=== PATIENT | female | born 1950 | race Caucasian/White ===

== ENCOUNTER 2018-03-02 20:52 | Emergency (ER) | payer OTHER ==
[~2018-03-02] VITALS: Ht 160 cm; Wt 69.4 kg
[~2018-03-02 20:52] MED LIST: ARAVA10 MG PO; COUMADIN6 MG PO; FOLIC ACID1 MG PO; LIDODERM 5%1 PATC1 TRANSDERM; MACRODANTIN50 MG PO; METHOTREXA1 GM/40 M1; PERCOCET 5-3251 EACH PO; SYNTHROID 0.0.088 M1 PO; SYNTHROID75 MCG; TRAMADOL 50 MG50 MG PO; ULTRAM 50MG TAB50 MG PO; ZOFRAN ODT4 MG PO
[2018-03-02] MEDS ORDERED: MACRODANTIN50 M1 PO (21:06)
[2018-03-02 22:45] VITALS: BP 180/104
== END 2018-03-02 22:49 | disposition home or self-care (01) ==
LOC: M.ERS 20:52
DX: M25.531 Pain in right wrist (principal); M25.532 Pain in left wrist; M25.562 Pain in left knee; E03.9 Hypothyroidism, unspecified; Z90.49 Acquired absence of other specified parts of digestive tract; M19.90 Unspecified osteoarthritis, unspecified site; G43.909 Migraine, unspecified, not intractable, without status migrainosus; Z88.1 Allergy status to other antibiotic agents; Z88.5 Allergy status to narcotic agent; Z88.8 Allergy status to other drugs, medicaments and biological substances; W01.0XXA Fall on same level from slipping, tripping and stumbling without subsequent striking against object, initial encounter; Y93.89 Activity, other specified; Y92.89 Other specified places as the place of occurrence of the external cause; Y99.8 Other external cause status

== ENCOUNTER 2019-04-06 21:28 | Emergency (ER) | payer OTHER ==
[~2019-04-06] VITALS: Ht 160 cm; Wt 64.4 kg
[~2019-04-06 21:28] MED LIST changes: +MACRODANTIN50 M1 PO
[2019-04-06 23:53] VITALS: BP 197/110
== END 2019-04-07 00:41 | disposition home or self-care (01) ==
LOC: M.ERS 21:28
DX: S62.025A Nondisplaced fracture of middle third of navicular [scaphoid] bone of left wrist, initial encounter for closed fracture (principal); M19.90 Unspecified osteoarthritis, unspecified site; E03.9 Hypothyroidism, unspecified; G43.909 Migraine, unspecified, not intractable, without status migrainosus; M32.9 Systemic lupus erythematosus, unspecified; F32.9 Major depressive disorder, single episode, unspecified; Z88.1 Allergy status to other antibiotic agents; Z88.4 Allergy status to anesthetic agent; Z90.49 Acquired absence of other specified parts of digestive tract; Z86.718 Personal history of other venous thrombosis and embolism; Z88.2 Allergy status to sulfonamides; Z88.5 Allergy status to narcotic agent; Z88.8 Allergy status to other drugs, medicaments and biological substances; W18.39XA Other fall on same level, initial encounter; Y92.89 Other specified places as the place of occurrence of the external cause; Y93.89 Activity, other specified; Y99.8 Other external cause status

== ENCOUNTER 2019-12-24 08:26 | Emergency (ER) | payer MEDICARE ==
[~2019-12-24] VITALS: Ht 165.1 cm; Wt 62.6 kg
[2019-12-24] MEDS ORDERED: NORCO 5-325 TA1 EAC1 PO (08:46)
[2019-12-24] MEDS ORDERED: ZOFRAN ODT4 MG SUBLING (08:46)
[2019-12-24 09:34] LABS: HEMATOCRIT 30.5 % (37.0-47.0); HEMOGLOBIN 10.5 gm/dL (12.0-15.0); MCH 31.8 pg (26.0-34.0); MCHC 34.3 g/dL (28.0-37.0); MCV 92.5 fL (80.0-100.0); MPV 8.1 fl. (7.2-11.1); NUCLEATED RBCS 0 /100WBC; PLATELET COUNT* 151 thou/uL (150-400); RDW-CV 16.3 % (10.5-14.5); WBC 2.3 thou/uL (4.0-11.0)
[2019-12-24 09:44] LABS: APTT 40.4 Seconds (25.0-31.3); INR 3.3; PROTIME 32.4 Seconds (9.20-11.50)
[2019-12-24 09:52] LABS: CALCIUM 8.4 mg/dL (8.5-10.1); CREATININE 0.7 mg/dL (0.6-1.3); POTASSIUM 3.6 mmol/L (3.5-5.1)
[2019-12-24 10:03] VITALS: BP 172/107
[2019-12-24 10:31] LABS: ABSOLUTE LYMPHOCYTES 0.4 thou/uL (0.8-5.3); ABSOLUTE MONOCYTES 0.7 thou/uL (0.0-1.2); ABSOLUTE NEUTROPHILS 1.2 thou/uL (1.6-8.1); ANISOCYTOSIS 1+; PLATELET ESTIMATE ADEQUATE
== END 2019-12-24 10:04 | disposition home or self-care (01) ==
LOC: M.ERS 08:26
PROVIDERS: Family Medicine
DX: S00.83XA Contusion of other part of head, initial encounter (principal); E03.9 Hypothyroidism, unspecified; G43.909 Migraine, unspecified, not intractable, without status migrainosus; M19.90 Unspecified osteoarthritis, unspecified site; F32.9 Major depressive disorder, single episode, unspecified; Z90.49 Acquired absence of other specified parts of digestive tract; Z88.1 Allergy status to other antibiotic agents; Z88.2 Allergy status to sulfonamides; Z88.6 Allergy status to analgesic agent; W22.03XA Walked into furniture, initial encounter; Y93.89 Activity, other specified; Y92.89 Other specified places as the place of occurrence of the external cause; Y99.8 Other external cause status

== ENCOUNTER 2020-08-04 14:52 | Emergency (ER) | payer MEDICARE ==
[~2020-08-04] VITALS: Ht 160 cm; Wt 64.9 kg
[~2020-08-04 14:52] MED LIST changes: +NORCO 5-325 TA1 EAC1 PO; +ZOFRAN ODT4 MG SUBLING
[2020-08-04] MEDS ORDERED: STOOL SOFTENER100 MG PO (15:06)
[2020-08-04] MEDS ORDERED: MACROBID 100 M100 MG PO ×2 (15:07)
[2020-08-04 15:40] LABS: INFLUENZA A ANTIGEN Negative (Negative); INFLUENZA B ANTIGEN Negative (Negative)
[2020-08-04] MEDS ORDERED: ZPAK PO (15:48)
[2020-08-04] MEDS ORDERED: PREDNISONE 20 M20 MG PO (15:48)
[2020-08-04] MEDS ORDERED: VENTOLIN HFA 1818 GM INH (15:48)
[2020-08-04 16:53] LABS: HEMATOCRIT 30.1 % (37.0-47.0); HEMOGLOBIN 10.1 gm/dL (12.0-15.0); MCHC 33.6 g/dL (28.0-37.0); MCV 95.2 fL (80.0-100.0); MPV 8.5 fl. (7.2-11.1); NUCLEATED RBCS 0 /100WBC; PLATELET COUNT* 125 thou/uL (150-400); RBC 3.16 mil/uL (4.20-5.00); RDW-CV 16.1 % (10.5-14.5); WBC 2.4 thou/uL (4.0-11.0)
[2020-08-04 17:04] LABS: POTASSIUM 3.6 mmol/L (3.5-5.1)
[2020-08-04 17:15] LABS: ALBUMIN 3.2 g/dL (3.4-5.0); TOTAL BILIRUBIN 0.6 mg/dL (<0.1-1.0); TOTAL PROTEIN 7.3 g/dL (6.4-8.2)
[2020-08-04 17:39] VITALS: BP 172/70
[2020-08-04 17:45] LABS: ABSOLUTE LYMPHOCYTES 0.7 thou/uL (0.8-5.3); ABSOLUTE MONOCYTES 0.3 thou/uL (0.0-1.2); ABSOLUTE NEUTROPHILS 1.4 thou/uL (1.6-8.1)
[2020-08-04 17:46] LABS: ANISOCYTOSIS Occasional; PLATELET ESTIMATE DECREASED
--- NOTE | 2020-08-05 10:33 | EKG ---
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
== END 2020-08-04 17:40 | disposition home or self-care (01) ==
LOC: M.ERS 14:52
PROVIDERS: Nurse Practitioner Family
DX: U07.1 COVID-19 (principal); G43.909 Migraine, unspecified, not intractable, without status migrainosus; E03.9 Hypothyroidism, unspecified; M19.90 Unspecified osteoarthritis, unspecified site; M32.9 Systemic lupus erythematosus, unspecified; Z88.1 Allergy status to other antibiotic agents; Z88.2 Allergy status to sulfonamides; Z88.5 Allergy status to narcotic agent; Z88.8 Allergy status to other drugs, medicaments and biological substances; Z90.49 Acquired absence of other specified parts of digestive tract; Z86.718 Personal history of other venous thrombosis and embolism

== ENCOUNTER 2020-08-11 08:54 | Inpatient (IN) | payer MEDICARE ==
[~2020-08-11] VITALS: Ht 160 cm; Wt 61.2 kg
[~2020-08-11 08:54] MED LIST changes: +MACROBID 100 M100 MG PO; +PREDNISONE 20 M20 MG PO; +STOOL SOFTENER100 MG PO; +VENTOLIN HFA 1818 GM INH; +ZPAK PO
[2020-08-11 09:18] VITALS: BP 168/97
[2020-08-11 10:01] LABS: CALCIUM 9.9 mg/dL (8.5-10.1); CREATININE 1.3 mg/dL (0.6-1.3); POTASSIUM 3.8 mmol/L (3.5-5.1)
[2020-08-11 10:12] LABS: ALBUMIN 3.6 g/dL (3.4-5.0); TOTAL BILIRUBIN 0.7 mg/dL (<0.1-1.0); TOTAL PROTEIN 7.9 g/dL (6.4-8.2)
[2020-08-11 10:25] LABS: HEMOGLOBIN 11.9 gm/dL (12.0-15.0); WBC 3.3 thou/uL (4.0-11.0)
[2020-08-11 10:27] LABS: HEMATOCRIT 35.3 % (37.0-47.0); MCHC 33.7 g/dL (28.0-37.0); MCV 95.1 fL (80.0-100.0); MPV 9.5 fl. (7.2-11.1); NUCLEATED RBCS 0 /100WBC; PLATELET COUNT* 139 thou/uL (150-400); RBC 3.71 mil/uL (4.20-5.00); RDW-CV 15.9 % (10.5-14.5)
[2020-08-11 10:49] LABS: ABSOLUTE BASOPHILS 0.1 thou/uL (0.0-0.2); ABSOLUTE LYMPHOCYTES 1.1 thou/uL (0.8-5.3); ABSOLUTE MONOCYTES 0.4 thou/uL (0.0-1.2); ABSOLUTE NEUTROPHILS 1.7 thou/uL (1.6-8.1); ATYPICAL LYMPHS 5 %; TARGET CELLS 2+
[2020-08-11 10:50] LABS: HYPOCHROMASIA 1+; PLATELET ESTIMATE DECREASED; TOXIC GRANULATION 1+
[2020-08-11 10:51] LABS: MICROCYTES 2+; OVALOCYTES 1+
[2020-08-11 10:52] LABS: SCHISTOCYTES 1+
[2020-08-11 12:54] LABS: URINE BILIRUBIN NEGATIVE (Negative); URINE BLOOD NEGATIVE (Negative); URINE CLARITY CLEAR; URINE COLOR YELLOW; URINE GLUCOSE-RANDOM NEGATIVE (Negative); URINE KETONES NEGATIVE (Negative); URINE LEUKOCYTES-REFLEX NEGATIVE (Negative); URINE NITRITE-REFLEX NEGATIVE (Negative); URINE PROTEIN NEGATIVE (Negative); URINE UROBILINOGEN 0.2 E.U./dl (0.2-1.0)
[2020-08-11 16:00] VITALS: BP 121/80
[2020-08-11 17:45] VITALS: BP 141/79
[2020-08-11 18:45] VITALS: BP 144/87
[2020-08-11 20:00] VITALS: BP 148/82
[2020-08-12] VITALS: BP 153/86
[2020-08-12 04:00] VITALS: BP 144/93
[2020-08-12 04:56] LABS: HEMATOCRIT 29.7 % (37.0-47.0); HEMOGLOBIN 10.2 gm/dL (12.0-15.0); MCH 32.7 pg (26.0-34.0); MCHC 34.4 g/dL (28.0-37.0); MCV 95.1 fL (80.0-100.0); RBC 3.12 mil/uL (4.20-5.00); RDW-CV 16.1 % (10.5-14.5); WBC 2.8 thou/uL (4.0-11.0)
[2020-08-12 05:26] LABS: ALBUMIN 3.1 g/dL (3.4-5.0); CALCIUM 8.6 mg/dL (8.5-10.1); CREATININE 1.1 mg/dL (0.6-1.3); MAGNESIUM 1.8 mg/dL (1.8-2.4); POTASSIUM 4.2 mmol/L (3.5-5.1); TOTAL BILIRUBIN 0.5 mg/dL (<0.1-1.0); TOTAL PROTEIN 6.8 g/dL (6.4-8.2)
[2020-08-12 08:00] VITALS: BP 146/89
--- NOTE | 2020-08-12 09:59 | EKG ---
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: : 1950 Requested By: Jackson Sweeney Order Number: [id number] MD: Holden Nicholson Measurements Intervals [place] Rate: 79 P: 36 UT: 170 QRS: -30 QRSD: 94 T: 41 QT: 361 QTc: 414 Interpretive Statements Sinus rhythm Ventricular premature complex Left axis deviation Compared to ECG 08/04/2020 15:07:17 Ventricular premature complex(es) now present Electronically Signed On 08-12-2020 9:59:37 CDT by Holden Nicholson [email or web address] <ELECTRONICALLY SIGNED> By: Holden Nicholson MD, FACC 08/12/20 0959 8 8 Holden Nicholson MD, [facility] /EPI
[2020-08-12 12:10] VITALS: BP 143/82
[2020-08-12 14:27] VITALS: BP 169/79
[2020-08-12 15:55] LABS: APTT 28.9 Seconds (25.0-31.3); PROTIME 10.8 Seconds (9.20-11.50)
[2020-08-12 16:29] LABS: CALCIUM 8.5 mg/dL (8.5-10.1); CREATININE 1.2 mg/dL (0.6-1.3); POTASSIUM 4.5 mmol/L (3.5-5.1)
--- NOTE | 2020-08-12 18:46 | NUR ---
PT. AOX4, VSS, DENIES PAIN, CALL LIGHT AND PERSONAL BELONGINGS PLACED WITHIN REACH. ON COVID PRECAUTIONS, O2 2L LC, TOLERATING WITHOUT DIFFICULTY. IV NS INFUSING CONTINUOUS, NO COMPLICATIONS. PT IN BED, ON PHONE, IN NO APPARENT DISTRESS, AT THIS TIME.
[2020-08-12 20:00] VITALS: BP 108/70
[2020-08-13] VITALS: BP 151/88
[2020-08-13 04:00] VITALS: BP 168/94
[2020-08-13 04:56] LABS: ABSOLUTE LYMPHOCYTES 0.5 thou/uL (0.8-5.3); ABSOLUTE MONOCYTES 0.5 thou/uL (0.0-1.2); ABSOLUTE NEUTROPHILS 4.5 thou/uL (1.6-8.1); BASOPHILS 0.4 %; EOSINOPHILS 0.1 %; HEMATOCRIT 29.3 % (37.0-47.0); HEMOGLOBIN 9.9 gm/dL (12.0-15.0); LYMPHOCYTES 8.5 %; MCH 32.4 pg (26.0-34.0); MCHC 33.9 g/dL (28.0-37.0); MCV 95.5 fL (80.0-100.0); MONOCYTES 9.5 %; MPV 9.4 fl. (7.2-11.1); NUCLEATED RBCS 0 /100WBC; PLATELET COUNT* 134 thou/uL (150-400); POLYS 81.5 %; RBC 3.07 mil/uL (4.20-5.00); RDW-CV 16.4 % (10.5-14.5); WBC 5.5 thou/uL (4.0-11.0)
[2020-08-13 05:19] LABS: CALCIUM 8.7 mg/dL (8.5-10.1); MAGNESIUM 1.9 mg/dL (1.8-2.4); TOTAL BILIRUBIN 0.4 mg/dL (<0.1-1.0)
[2020-08-13 07:30] VITALS: BP 154/87
[2020-08-13 11:59] VITALS: BP 155/80
--- NOTE | 2020-08-13 12:39 | NUR ---
Nutrition: Pt admitted with COVID. Nsg risk 2 points. Per [email or web address], wt has gradually decreased over 4 years: 160# in 2016, now 135# - 15% overall loss, which is mild loss over time. RN stated pt is eating well. Alb 3, BG 122. 2gm Na diet. Consider mild nutrition risk at this time.
--- NOTE | 2020-08-13 12:44 | NUR ---
CM SPOKE TO THE THE PT VIA THE HOSPITAL PHONE THE PT IS CURRENTLY UNDER ENHANCED PRECAUTIONS D/T POSITIVE COVID. PT IS A&O, INDEPENDENT WITH ADL'S, ACTIVE AND DRIVES. PT INFORMS THAT HER SPOUSE IS POSITIVE FOR COVID WELL AND QUARTINING AT HOME. PT USES 0 DME. PT HAS 0 HX OF HH OR SNF. CM INFORMED DURING PRIME ROUNDING THAT THIS IT IS POSSIBLE THAT THIS PT MAY D/C TODAY PENDING PULM RECOMMENDATIONS. CM WILL REMAIN AVAILABLE TO ASSIST AND FOLLOW NEEDED.
[2020-08-13 15:56] VITALS: BP 135/69
[2020-08-13 20:00] VITALS: BP 163/67
--- NOTE | 2020-08-13 20:00 | NUR ---
RECEIVED REPORT AND ASSUMED CARE OF PT, AMBULATING TO AND FROM BR, NO SOA NOTED. STATES SHE IS STARTING TO GET THE TICKLE COUGH THAT SHE CAME IN WITH. TELEMETRY ON SHOWING SB. WILL CONT TO MONITOR AND ASSIST NEEDED.
--- NOTE | 2020-08-13 21:01 | CON ---
[address] [address] CONSULTATION Name: FIDE JEFFRIES Room: [address] M.R.#: [id number] Admission: 08/11/20 Attend Phys: Ted Dsouza, Discharge: Date of : 48 Report #: [id number] THIS REPORT FOR: //name// cc: Lin Loaiza MD, Lin W. MD ~ THIS REPORT FOR: //name// DATE OF SERVICE: 08/12/2020 Consult has been requested by Dr. Dsouza. INDICATION FOR CONSULTATION: COVID-19. HISTORY OF PRESENT ILLNESS: This is a 70-year-old female, past medical history includes a history of lupus. The patient is on immunosuppressive therapy for lupus. The patient has now presented with increasing shortness of breath as well as a cough. She initially did have some chest pain with respirations as well and had been feeling dizzy, also had diarrhea 1 day. The patient on initial arrival was tachycardic with heart rates up to 122. She also had a mild elevation in creatinine at 1.3, baseline creatinine is around 0.8-0.9. The patient has had mildly elevated blood pressures as well. She has been afebrile. Upon arrival, the patient has been started on dexamethasone. She has also been fluid resuscitated. At this time, she says that she no longer has the chest pain. She still has some cough and shortness of breath. She overall is feeling better than yesterday. REVIEW OF SYSTEMS: The patient answered to the negative for 12 questions for review of systems except as mentioned above. PAST MEDICAL HISTORY: Lupus, depression, hepatitis in 1969, cholecystectomy, D and C, urethral dilatation, surgery for a cyst, migraine, several minor injuries including a broken nose, esophageal dilatation, hypothyroidism, DVT of right leg, the exact circumstances in which the patient had DVT not known to me, osteoarthritis. SOCIAL HISTORY: Lifetime nonsmoker. No known history of heavy alcohol use or illegal drug use. CURRENT MEDICATIONS: List in [employer] reviewed. HOME MEDICATIONS: List in [employer] also reviewed. FAMILY HISTORY: There is no pertinent family history. ALLERGIES: The patient has HIVES WITH SULFONAMIDE ANTIBIOTICS. She also reports having had THROAT SWELLING WITH AMOXICILLIN[place] [address] CONSULTATION Name: FIDE JEFFRIES Room: [address] IN [facility].#: [id number] Admission: 08/11/20 Attend Phys: Ted Dsouza, Discharge: Date of : 48 Report #: [id number] NAUSEA WITH CODEINE as well as GENERALIZED WEAKNESS WITH THE USE OF PROCAINE, the last 2 do not appear to be true allergies and are more likely side effects. PHYSICAL EXAMINATION: GENERAL: She is alert, awake and oriented, does not appear to be in any distress at this time. VITAL SIGNS: Has a pulse of 69 and a blood pressure elevated to 169/79. She is on room air and she is saturating 97%, respiratory rate is 19. She is afebrile with a temperature of 36.4. HEENT: Head is normocephalic and atraumatic. NECK: Does not show raised JVP, asymmetry, mass or lymph nodes. CHEST: Symmetrical expansion on inspection and palpation. On auscultation, chest is clear. HEART: Regular, no murmur. ABDOMEN: Soft and nontender. EXTREMITIES: Lower extremities show no edema and no calf tenderness. SKIN: Dry and intact. NEUROLOGICAL: Moves all extremities bilaterally equally and spontaneously with no focal deficit identified. LABORATORY DATA: The patient's chest x-ray is reviewed from yesterday and this shows some old scarring. There is no definite new infiltrate or pulmonary vascular congestion identified. The patient's COVID-19 antigen is positive. Chemistries are as above. CBC is also as above. Urinalysis is reviewed. There is leukopenia. There is mild thrombocytopenia noted. ASSESSMENT AND PLAN: 1. COVID-19. I agree with dexamethasone. Note that the patient has been on immunosuppressive therapy and also does have mild leukopenia in addition to borderline platelet count. Therefore, if there is any deterioration in the patient's condition, I will recommend having a very low threshold of starting remdesivir. The patient's LFTs are normal and therefore remdesivir is not contraindicated due to her previous history of hepatitis; however, since remdesivir may be a consideration soon, I will go ahead and obtain an acute viral hepatitis panel as well, so that we have this on records. I will also repeat a chest x-ray now. 2. Dehydration. The patient's initial lab work is consistent with dehydration. The patient does appear to have been fluid resuscitated since then. We will go ahead and repeat a basic metabolic profile now. If the patient's BUN and creatinine are continuing to improve, then I will be inclined to discontinue IV fluids to avoid overshooting to the fluid overloaded side. We will review repeat labs and advise. 3. History of lupus, on immunosuppressive therapy. 4. Past history of deep vein thrombosis. She is on Lovenox. We will go ahead and obtain a D-dimer. If elevated, then I will be inclined to obtain venous Doppler and we will also evaluate as to whether a CTA chest should be a [address] [address] CONSULTATION Name: EDMUNDOSMITHFIDE KEARNS Room: [address] M.R.#: [id number] Admission: 08/11/20 Attend Phys: Ted Dsouza, Discharge: Date of : 48 Report #: [id number]. Thanks for this consultation. <ELECTRONICALLY SIGNED> By: Dong Cosme MD 08/13/20 2101 1527 [id number] Cosme MD /nt
[2020-08-13 22:06] LABS: HEPATITIS B SURFACE AG Negative (Negative)
[2020-08-14] VITALS: BP 135/76
[2020-08-14 03:44] VITALS: BP 152/88
--- NOTE | 2020-08-14 06:40 | NUR ---
SLEPT WELL. NO CHANGES IN ASSESSMENT. CONT TO STATE SHE HAS A COUGH LIKE THE ONE SHE CAME IN WITH. TELEMETRY ON SHOWING SB. HS GOALS OF REST AND SAFETY ACHIEVED. HOURLY ROUNDING OBSERVED.
[2020-08-14 08:00] VITALS: BP 176/65
[2020-08-14] MEDS ORDERED: MACROBID 100 M100 MG PO (09:34)
[2020-08-14] MEDS ORDERED: PEPCID20 MG PO (09:34)
[2020-08-14] MEDS ORDERED: DEXAMETHASONE 44 M1 PO (09:34)
[2020-08-14 10:38] VITALS: BP 176/65
--- NOTE | 2020-08-14 11:35 | NUR ---
CM INFORMED DURING PRIME ROUNDING OF THE PLAN OF CARE FOR THE PT INCLUDING PLAN TO D/C PT HOME TODAY WITH SELF-CARE AND NO NEEDS. CM WILL REMAIN AVAILABLE TO ASSIST AND FOLLOW NEEDED.
--- NOTE | 2020-08-14 13:43 | NUR ---
ASSUMED PT CARE AT 0730, PT AOX4, NO C/O PAIN OR SHORTNESS OF BREATH BUT C/O DRY COUGH AND SORE THROAT, NOTIFIED AND HE EXPLAINED THESE SYMPTOMS R/T COVID DX. DC ORDERS RECEIVED. DC INSTRUCTIONS, CARE NOTES, SCRIPTS AND F/U APPTS GIVEN TO PT, PT COMMUNICATES UNDERSTANDING OF DC TEACHING. DRY HEAT ROOM ATTENDANT REMOVED. PT DC'D BY WC W/ NURSING STAFF W/ ALL PAPERWORK AND BELONGINGS AT APPROX 1345 VIA WC TO 'S PERSONAL VEHICLE.
== END 2020-08-14 13:38 | disposition home or self-care (01) | DRG 871 ==
LOC: M.ERS 08:54 → M.TBA-ER 11:31 → M.2W 11:31
PROVIDERS: Emergency Medicine Emergency Medical Services; Internal Medicine Critical Care Medicine; ADMIT Family Medicine; ATTEND Family Medicine
DX: A41.89 Other specified sepsis (principal); U07.1 COVID-19; D61.818 Other pancytopenia; N17.9 Acute kidney failure, unspecified; E86.0 Dehydration; F32.9 Major depressive disorder, single episode, unspecified; G43.909 Migraine, unspecified, not intractable, without status migrainosus; E03.9 Hypothyroidism, unspecified; M19.90 Unspecified osteoarthritis, unspecified site; Z90.49 Acquired absence of other specified parts of digestive tract; Z86.718 Personal history of other venous thrombosis and embolism; Z79.01 Long term (current) use of anticoagulants; Z79.899 Other long term (current) drug therapy; Z88.5 Allergy status to narcotic agent; Z88.2 Allergy status to sulfonamides; Z88.8 Allergy status to other drugs, medicaments and biological substances; Z88.1 Allergy status to other antibiotic agents

== ENCOUNTER 2020-08-19 07:39 | Emergency (ER) | payer MEDICARE ==
[~2020-08-19] VITALS: Ht 160 cm; Wt 59.0 kg
[~2020-08-19 07:39] MED LIST changes: +DEXAMETHASONE 44 M1 PO; +PEPCID20 MG PO
[2020-08-19 08:53] LABS: ABSOLUTE LYMPHOCYTES 0.6 thou/uL (0.8-5.3); ABSOLUTE MONOCYTES 0.5 thou/uL (0.0-1.2); ABSOLUTE NEUTROPHILS 2.9 thou/uL (1.6-8.1); BASOPHILS 0.6 %; EOSINOPHILS 0.2 %; HEMATOCRIT 32.5 % (37.0-47.0); HEMOGLOBIN 10.7 gm/dL (12.0-15.0); LYMPHOCYTES 14.1 %; MCH 31.5 pg (26.0-34.0); MCV 95.2 fL (80.0-100.0); MONOCYTES 12.1 %; MPV 8.8 fl. (7.2-11.1); NUCLEATED RBCS 0 /100WBC; PLATELET COUNT* 139 thou/uL (150-400); RBC 3.41 mil/uL (4.20-5.00); RDW-CV 16.6 % (10.5-14.5)
[2020-08-19 09:02] LABS: CALCIUM 9.1 mg/dL (8.5-10.1); CREATININE 1.1 mg/dL (0.6-1.3); POTASSIUM 3.9 mmol/L (3.5-5.1)
[2020-08-19 09:06] LABS: TOTAL BILIRUBIN 0.5 mg/dL (<0.1-1.0); TOTAL PROTEIN 7.2 g/dL (6.4-8.2)
[2020-08-19 10:16] VITALS: BP 126/71
--- NOTE | 2020-08-20 17:51 | EKG ---
[place] [address] ELECTROCARDIOGRAM REPORT Name: FIDE JEFFRIES Room: 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 : 1950 Requested By: Jackson Sweeney Order Number: [id number] MD: Dwayne Allen Measurements Intervals [place] Rate: 83 P: 54 [place]: 182 QRS: -33 QRSD: 103 T: 61 QT: 370 QTc: 435 Interpretive Statements Sinus rhythm Ventricular premature complex Left axis deviation Baseline wander in lead(s) II,III,aVR,aVF Compared to ECG 08/11/2020 09:19:19 No significant changes Electronically Signed On 08-20-2020 17:51:14 CDT by Dwayne Allen [email or web address] <ELECTRONICALLY SIGNED> By: Dwayne Allen MD, FACC 08/20/20 1751 0749 0749 Dwayne Allen MD, FACC /EPI
== END 2020-08-19 10:17 | disposition home or self-care (01) ==
LOC: M.ERS 07:39
PROVIDERS: Emergency Medicine Emergency Medical Services
DX: S20.211A Contusion of right front wall of thorax, initial encounter (principal); U07.1 COVID-19; E03.9 Hypothyroidism, unspecified; M19.90 Unspecified osteoarthritis, unspecified site; G43.909 Migraine, unspecified, not intractable, without status migrainosus; Z88.1 Allergy status to other antibiotic agents; Z88.2 Allergy status to sulfonamides; Z86.718 Personal history of other venous thrombosis and embolism; Z90.49 Acquired absence of other specified parts of digestive tract; Z88.5 Allergy status to narcotic agent; X58.XXXA Exposure to other specified factors, initial encounter; Y93.89 Activity, other specified; Y92.89 Other specified places as the place of occurrence of the external cause; Y99.8 Other external cause status

== ENCOUNTER 2020-09-11 09:01 | Emergency (ER) | payer MEDICARE ==
[~2020-09-11] VITALS: Ht 160 cm; Wt 61.2 kg
[2020-09-11 10:54] VITALS: BP 94/58
== END 2020-09-11 10:55 | disposition home or self-care (01) ==
LOC: M.ERS 09:01
DX: S80.01XA Contusion of right knee, initial encounter (principal); G43.909 Migraine, unspecified, not intractable, without status migrainosus; E03.9 Hypothyroidism, unspecified; M19.90 Unspecified osteoarthritis, unspecified site; Z86.718 Personal history of other venous thrombosis and embolism; Z90.49 Acquired absence of other specified parts of digestive tract; Z79.2 Long term (current) use of antibiotics; Z79.899 Other long term (current) drug therapy; Z88.1 Allergy status to other antibiotic agents; Z88.2 Allergy status to sulfonamides; Z88.4 Allergy status to anesthetic agent; Z88.5 Allergy status to narcotic agent; W19.XXXA Unspecified fall, initial encounter; Y93.89 Activity, other specified; Y92.89 Other specified places as the place of occurrence of the external cause; Y99.8 Other external cause status

== ENCOUNTER 2021-08-10 06:11 | Emergency (ER) | payer MEDICARE ==
[~2021-08-10] VITALS: Ht 160 cm; Wt 61.2 kg
[2021-08-10] MEDS ORDERED: LISINOPRIL10 MG PO (06:25)
[2021-08-10] MEDS ORDERED: FOSAMAX 70 MG T70 MG PO (06:25)
[2021-08-10 06:44] LABS: URINE BILIRUBIN NEGATIVE (Negative); URINE BLOOD NEGATIVE (Negative); URINE CLARITY CLEAR; URINE COLOR YELLOW; URINE GLUCOSE-RANDOM NEGATIVE (Negative); URINE KETONES NEGATIVE (Negative); URINE LEUKOCYTES-REFLEX TRACE (Negative); URINE NITRITE-REFLEX NEGATIVE (Negative); URINE PROTEIN NEGATIVE (Negative); URINE UROBILINOGEN 0.2 E.U./dl (0.2-1.0)
[2021-08-10 06:49] LABS: SQUAMOUS 0-3 Few /LPF (0-3)
[2021-08-10 06:50] LABS: URINE RBC None Seen /HPF (0-2); URINE WBC-REFLEX 0-5 Rare /HPF (0-5)
[2021-08-10 06:51] LABS: BACTERIA-REFLEX 1-9 Few /HPF (None Seen); CASTS None Seen /LPF (None Seen); CRYSTALS None Seen /LPF (None Seen); MUCUS None Seen strn/LPF (None Seen)
[2021-08-10] MEDS ORDERED: HYDROCODON-ACE1 EAC7 PO (08:20)
[2021-08-10] MEDS ORDERED: LIDODERM1 EACH TOP (08:20)
[2021-08-10] MEDS ORDERED: DOXYCYCLINE 10100 M2 PO (08:20)
[2021-08-10] MEDS ORDERED: ZOFRAN ODT4 MG DISSOLVE (08:20)
[2021-08-10 08:50] VITALS: BP 153/87
== END 2021-08-10 08:51 | disposition home or self-care (01) ==
LOC: M.ERS 06:11
PROVIDERS: Personal Emergency Response Attendant
DX: M54.41 Lumbago with sciatica, right side (principal); G89.29 Other chronic pain; G43.909 Migraine, unspecified, not intractable, without status migrainosus; E03.9 Hypothyroidism, unspecified; M19.90 Unspecified osteoarthritis, unspecified site; Z90.49 Acquired absence of other specified parts of digestive tract; Z79.899 Other long term (current) drug therapy; Z88.0 Allergy status to penicillin; Z88.2 Allergy status to sulfonamides; Z88.5 Allergy status to narcotic agent; Z88.1 Allergy status to other antibiotic agents

== ENCOUNTER → 2021-12-23 | Outpatient (CLI) | payer OTHER ==
[~2021-12-23] MED LIST changes: +DOXYCYCLINE 10100 M2 PO; +FOSAMAX 70 MG T70 MG PO; +HYDROCODON-ACE1 EAC7 PO; +LIDODERM1 EACH TOP; +LISINOPRIL10 MG PO; +ZOFRAN ODT4 MG DISSOLVE
== END ==
LOC: M.LAB 08:23
PROVIDERS: ATTEND Internal Medicine Gastroenterology
DX: Z01.812 Encounter for preprocedural laboratory examination (principal); Z20.822 Contact with and (suspected) exposure to COVID-19